=== PATIENT | male | born 1935 | race African-American/Black ===

== ENCOUNTER 2017-09-14 06:52 | Outpatient (CLI) | payer MEDICARE ==
[2017-09-14 07:20] LABS: Hematocrit 37.4 % (35.5-45.6); Hemoglobin 12.3 gm/dl (11.8-15.2); Mean Corpuscular HGB Conc 33 % (32-34); Mean Corpuscular Hemoglobin 31 pg (28-32); Mean Corpuscular Volume 92 fl (84-94); Platelet Count 415 K/mm3 (140-440); Red Blood Count 4.05 M/mm3 (3.65-5.03); Red Cell Distribution Width 15.4 % (13.2-15.2)
[2017-09-14 07:35] LABS: Alanine Aminotransferase 47 units/L (7-56); Albumin 3.4 g/dL (3.9-5); BUN/Creatinine Ratio 24; Blood Urea Nitrogen 19 mg/dL (9-20); Chol/HDL Ratio 2.95 %; HDL Cholesterol 49 mg/dL (40-59); Hemolysis Index 0; LDL Cholesterol,Direct 81 mg/dL (50-130)
[2017-09-14] MEDS ORDERED: NACL ONE (07:45)
[2017-09-14 07:54] LABS: Erythrocyte Sedimentation Rate 50 mm/Hr (0-20)
--- NOTE | 2017-09-14 08:02 | XRay Report ---
ROUTINE CHEST, TWO VIEWS: HISTORY: Pulmonary fibrosis. Comparison is made to a CT abdomen and pelvis which includes the lung bases dated 06/01/16. Moderate underlying emphysematous changes are evident. Interstitial markings at the left lung base remain prominent. There is focal scarring and mild bronchiectasis in the lingula and mild subpleural scarring in the peripheral left lower lobe. No fibrotic changes are identified in the right lung. No evidence for pneumonia, large pleural effusion or pneumothorax. Mild chronic left pleural thickening is suspected. Heart and mediastinal structures are within normal limits. IMPRESSION: Emphysematous changes. Increased interstitial markings at the left lung base/lingula and mild left pleural thickening. This may be secondary to previous insult such as pneumonia. No pattern to suggest idiopathic pulmonary fibrosis.
--- NOTE | 2017-09-14 11:07 | Cat Scan Report ---
CT CHEST WITH CONTRAST: HISTORY: Pulmonary fibrosis. COMPARISON: Previous chest x-rays. TECHNIQUE: Helical CT in 1.25mm intervals following IV contrast. Sagittal and coronal reformatted images. FINDINGS: Thyroid gland: Atrophic with no evidence of nodule or inflammation. Tracheobronchial tree: Within normal limits. Esophagus: Normal. Heart: Normal. Pericardium: Normal. Mediastinum: No mediastinal adenopathy or mass. Moderate atherosclerotic calcifications are noted in the aortic arch. No aneurysm or dissection. Lung Dorsey: Moderate emphysematous changes are identified linear scarring is identified in both apical regions, lingula and lateral left lower lobe. There is mild intralobular septal thickening particularly in the left lower lobe. This appears to represent early fibrotic changes. No advanced findings to suggest idiopathic pulmonary fibrosis. There is a 1.3 cm airspace density in the posterior right lower lobe of uncertain etiology. This probably represents a focus of scarring. Close followup is recommended. Scattered calcified granulomas are noted. Pleural Spaces: Mild left pleural thickening is noted. No effusion or pneumothorax. Musculoskeletal: Within normal limits. IMPRESSION: Emphysematous changes. The interstitium is slightly prominent, particularly the left lower lung zone, but no definitive findings of idiopathic pulmonary fibrosis. 1.3 cm density in the right lower lobe which probably represents scarring or a focus of inflammation. Followup is recommended. Chronic granulomatous disease.
== END 2017-09-14 06:53 | disposition home or self-care (01) ==
LOC: CT 06:52
PROVIDERS: ATTEND Internal Medicine
DX: J47.9 Bronchiectasis, uncomplicated (principal); J84.10 Pulmonary fibrosis, unspecified; E03.4 Atrophy of thyroid (acquired); I70.0 Atherosclerosis of aorta
CPT/HCPCS: 36415; 71046; 71260; 80053; 80061; 84436; 84443; 85027; 85652; Q9967

== ENCOUNTER 2018-08-10 09:13 | Outpatient (CLI) | payer MEDICARE ==
[2018-08-10 09:56] LABS: Basophils % (Auto) 0.2 % (0.0-1.8); Eosinophils # (Auto) 0.2 K/mm3 (0.0-0.4); Eosinophils % (Auto) 2.6 % (0.0-4.3); Hematocrit 42.5 % (35.5-45.6); Lymphocytes # (Auto) 2.3 K/mm3 (1.2-5.4); Lymphocytes % (Auto) 34.7 % (13.4-35.0); Mean Corpuscular HGB Conc 33 % (32-34); Mean Corpuscular Volume 92 fl (84-94); Monocytes # (Auto) 0.4 K/mm3 (0.0-0.8); Monocytes % (Auto) 6.2 % (0.0-7.3); Platelet Count 171 K/mm3 (140-440); Red Blood Count 4.63 M/mm3 (3.65-5.03); Red Cell Distribution Width 16.4 % (13.2-15.2)
[2018-08-10 10:14] LABS: Albumin 3.9 g/dL (3.9-5); Calcium 9.4 mg/dL (8.4-10.2)
--- NOTE | 2018-08-10 10:50 | XRay Report ---
ROUTINE CHEST, TWO VIEWS: HISTORY: Other disorders of lung. Patchy infiltrate at the right lung base has resolved since 01/09/18. Otherwise, lungs are adequately aerated. Mild chronic pleural parenchymal changes at the left lung base are unchanged. No pleural effusion or pneumothorax. Normal heart and mediastinal structures. IMPRESSION: No acute process. Right lower lobe infiltrate has resolved since 01/09/18.
--- NOTE | 2018-08-10 13:09 | Cat Scan Report ---
FINAL REPORT EXAM: CT CHEST W CON HISTORY: Other disorders of lung TECHNIQUE: CT examination of the chest after IV contrast PRIORS: 01/03/2018 FINDINGS: Normal cardiac size without pericardial effusion. Intact normal caliber thoracic aorta with moderate calcified and noncalcified atherosclerotic plaque. Normal-appearing esophagus. No hilar mass. Benign calcified granulomas again noted in the kiel, mediastinum, and both lungs. Nonspecific promine nce of mediastinal lymph nodes remains unchanged. These may be reactive, granulomatous, or related to chronic lung disease. Nonspecific, smoothly marginated, simple appearing, low density bilateral renal lesions are statistic ally most likely cysts. Visualized portions appear unchanged. Degenerative change in the regional skeleton. No acute fracture. Stable chronic atelectasis and/or scarring with consolidation right upper lobe medially. Stable pulmo nary parenchymal and pleural scar in right upper lobe anteriorly as well as superior segment right lo wer lobe. Stable interstitial scar right lower lobe base. Stable slightly in solid scarring posterior left upper lobe along the major fissure. Nonspecific new nodular opacity with irregular margins may be scarring in the posterior lingula adjac ent to the major fissure measuring 11 mm. Series 2, image 64 New scattered patchy, interstitial, and consolidative density in the left lower lobe base. Interval resolution of multifocal consolidation in the medial right lung base. IMPRESSION: New 11 mm nodular opacity with spiculated margins is noted in the posterior lingula adjacent to the m ajor fissure. This may be new scarring, atelectasis, or pneumonitis. Differential includes pulmonary neoplasm. Recommend followup surveillance chest CT in 3 months to evaluate for change New scattered patchy, interstitial, and consolidated density in the left lower lung base medially may reflect atelectasis and/or pneumonia Again present is multifocal pulmonary parenchymal and subpleural scar with fibrotic change Interval resolution of multifocal right lower lobe consolidation
--- NOTE | 2018-08-10 13:22 | Cat Scan Report ---
FINAL REPORT EXAM: CT SINUSES WO CON HISTORY: Other disorders of lung, Acute sinusitis, unspecified TECHNIQUE: CT examination of the paranasal sinus region without IV contrast PRIORS: None. FINDINGS: Acute fracture or focal osseous lesion: None Visualized mastoid air cells: Clear Visualized middle ear cavities: Clear Frontal sinuses: Clear Ethmoid sinuses: Scattered slight mucosal thickening bilaterally Sphenoid sinuses: Clear Maxillary sinuses: Minimal mucosal thickening scattered bilaterally Acute fluid level: None Maxillary infundibulum patent bilateral Nasal turbinates normal bilateral Nasal septum relatively midline IMPRESSION: Slight mucosal thickening ethmoid sinuses and minimal mucosal thickening maxillary sinuses. No the ev idence of acute fluid level
[2018-08-14 22:32] LABS: ANA Screen, IFA Negative (Negative)
[2018-08-16 19:38] LABS: Myeloperoxidase Antibody <1.0 AI (<1.0)
== END 2018-08-10 09:14 | disposition home or self-care (01) ==
LOC: CT 09:13
PROVIDERS: ATTEND Internal Medicine
DX: J01.20 Acute ethmoidal sinusitis, unspecified (principal); J32.0 Chronic maxillary sinusitis; J98.4 Other disorders of lung; I10 Essential (primary) hypertension; J45.909 Unspecified asthma, uncomplicated
CPT/HCPCS: 36415; 70486; 71046; 71260; 80053; 82785; 82803; 85025; 86021; 86038; Q9967

== ENCOUNTER 2019-05-20 11:39 | Outpatient (CLI) | payer MEDICARE ==
[2019-05-20 12:14] LABS: Hematocrit 43.8 % (35.5-45.6); Hemoglobin 14.8 gm/dl (11.8-15.2); Mean Corpuscular HGB Conc 34 % (32-34); Mean Corpuscular Volume 95 fl (84-94); Platelet Count 166 K/mm3 (140-440); Red Blood Count 4.64 M/mm3 (3.65-5.03); Red Cell Distribution Width 14.4 % (13.2-15.2)
[2019-05-20 12:25] LABS: Bilirubin,Urine NEG (Negative); Blood,Urine NEG (Negative); Color,Urine Yellow (Yellow); Mucus,Urine FEW /HPF; Protein,Urine <15 mg/dL mg/dL (Negative); Urobilinogen,Urine < 2.0 mg/dL (<2.0); WBC,Urine < 1.0 /HPF (0.0-6.0)
[2019-05-20 12:39] LABS: BUN/Creatinine Ratio 15; Blood Urea Nitrogen 16 mg/dL (9-20); Calcium 9.2 mg/dL (8.4-10.2); Hemolysis Index 11
[2019-05-20 21:39] LABS: Creatinine,Urine 133.4 mg/dL (0.1-20.0); Protein/Creatinine Ratio,Urine 0.19
[2019-05-22 13:31] LABS: Vitamin D, 25-OH, D2 <4 ng/mL
== END 2019-05-20 11:40 | disposition home or self-care (01) ==
LOC: LAB 11:39
PROVIDERS: ATTEND Internal Medicine Nephrology
DX: N25.81 Secondary hyperparathyroidism of renal origin (principal); I12.9 Hypertensive chronic kidney disease with stage 1 through stage 4 chronic kidney disease, or unspecified chronic kidney disease; N18.3 Chronic kidney disease, stage 3 (moderate); J45.909 Unspecified asthma, uncomplicated
CPT/HCPCS: 36415; 80048; 81001; 82306; 82570; 83970; 84100; 84156; 85027